=== PATIENT | male | born 1965 | race Caucasian/White ===

== ENCOUNTER 2020-11-28 14:58 | Emergency (ER) | payer MEDICAID ==
[~2020-11-28] VITALS: Ht 172.7 cm; Wt 72.7 kg
[2020-11-28 15:17] VITALS: BP 143/88; Ht 172.7 cm; Wt 72.7 kg
[2020-11-28 17:29] LABS: BASOPHILS 1.1 % (0-2); EOSINOPHILS 2.5 % (0-7); HEMATOCRIT 46.6 % (42.0-54.0); HEMOGLOBIN 15.6 g/dL (13.5-17.5); LYMPHOCYTES 29.4 % (15-50); MCH 31.9 pg (26.0-34.0); MCHC 33.4 g/dL (31.0-37.0); MCV 95.5 fL (80.0-100.0); MEAN PLATELET VOLUME 8.4 fL (7.4-10.4); MONOCYTES 9.4 % (2-11); NEUTROPHILS 57.6 % (40-80); PLATELET COUNT 232 10x3/uL (130-400); RBC 4.88 10x6/uL (4.20-6.10); RDW 13.3 % (11.5-14.5); WBC 7.3 10x3/uL (4.8-10.8)
[2020-11-28 17:35] LABS: APTT 26.1 SECONDS (22.8-39.4); INR 1.13 (0.85-1.17); PROTIME 13.5 SECONDS (11.6-15.0)
[2020-11-28 18:07] LABS: CALC OSMOLALITY 275 mosm/kg (275-300); CARBON DIOXIDE 28.5 mmol/L (21.0-32.0); CHLORIDE - SERUM 102 mmol/L (98-107); CREATININE - SERUM 0.8 mg/dL (0.6-1.3); GLUCOSE 89 mg/dL (74-106); POTASSIUM - SERUM 3.7 mmol/L (3.5-5.1); SODIUM 140 mmol/L (136-145); UREA NITROGEN 6 mg/dL (7-18); eGFR NON AFRICAN AMERICAN > 90 mL/min (90-120)
[2020-11-28 18:21] LABS: ALKALINE PHOSPHATASE 62 U/L (30-120); ALT (SGPT) 35 U/L (10-68); BILIRUBIN - TOTAL 0.48 mg/dL (0.2-1.3); C-REACTIVE PROTEIN < 0.2 mg/dL (0.0-0.9); PROTEIN - SERUM 7.1 g/dL (6.4-8.2)
[2020-11-28] MEDS ORDERED: CLEOCIN HCL300 MG PO (20:09)
== END 2020-11-28 20:41 | disposition home or self-care (01) ==
LOC: D.ER 14:58
PROVIDERS: Emergency Medicine
DX: L03.116 Cellulitis of left lower limb (principal)